=== PATIENT | male | born 2000 | race Caucasian/White ===

== ENCOUNTER 2024-03-20 22:51 | Emergency (ER) | payer MEDICAID ==
[~2024-03-20] VITALS: Ht 175.3 cm; Wt 72.6 kg
[2024-03-20 22:53] VITALS: BP_SYST 127; PULSE 97; RESP 18; TEMP 97.5; O2SAT 97
[2024-03-21] MEDS ORDERED: LORA-258 PO (00:35)
[2024-03-21 00:40] VITALS: BP_SYST 127; PULSE 97; RESP 18; TEMP 97.5; O2SAT 97
[2024-03-21] MEDS: LORazepam 1 MG TABLET PO ONE (00:54)
== END 2024-03-21 00:52 | disposition home or self-care (01) ==
LOC: SED 22:51
DX: F41.9 Anxiety disorder, unspecified (principal); F60.0 Paranoid personality disorder; Z79.899 Other long term (current) drug therapy
CPT/HCPCS: 99283